=== PATIENT | male | born 1935 | race Caucasian/White ===

== ENCOUNTER 2019-10-09 09:09 | Inpatient (IN) | payer OTHER, MEDICARE, SELFPAY ==
[2019-10-09] VITALS (13 sets, daily range): BP systolic 129–176; BP diastolic 48–80; PULSE 64–96; RESP 14–20; TEMP 36.4–37; O2SAT 93–96; BMI 29.1
--- NOTE | ~2019-10-09 | US_ITS ---
EXAMINATION: US venous doppler UE LT DATE: 10/10/2019 12:24 INDICATION: Left upper limb edema. TECHNIQUE: Grayscale ultrasound images without and with compression and Doppler ultrasound images of the left upper extremity veins were obtained. COMPARISON: None. FINDINGS: The visualized portions of the left internal jugular vein, subclavian vein, axillary vein, brachial v eins, basilic vein, radial vein, and ulnar vein are patent. There is thrombus in left cephalic vein. IMPRESSION: 1. No deep venous thrombosis. 2. Superficial vein thrombosis involving left cephalic vein. Reviewed, dictated and finalized at location A.
--- NOTE | ~2019-10-09 | US_ITS ---
EXAMINATION: US venous doppler [facility] DATE: 10/10/2019 12:24 INDICATION: Lower limb edema. TECHNIQUE: Grayscale ultrasound images without and with compression and Doppler ultrasound images of the bilateral lower extremity veins were obtained. COMPARISON: None. FINDINGS: The visualized portions of right common femoral vein, profunda (deep) femoral vein, femoral vein, pop liteal vein, peroneal veins, posterior tibial veins, and greater saphenous vein outflow are patent. The visualized portions of left common femoral vein, profunda femoral vein, femoral vein, popliteal v ein, peroneal veins, posterior tibial veins, and greater saphenous vein outflow are patent. IMPRESSION: 1. No deep venous thrombosis. Reviewed, dictated and finalized at location A.
--- NOTE | ~2019-10-09 | XR_ITS ---
XR chest 2V 10/09/2019 09:32 Indication: Shortness of breath, cough and weakness Procedure: AP and lateral views of the chest Comparison: Comparison to multiple prior studies sequentially, with oldest reviewed study dated 05/03. Findings: There is patchy bilateral airspace disease, compatible with pneumonia. Port catheter tip in the condyle aspect of the SVC. Heart size normal for technique. No definite pleural effusion or pneu mothorax. Impression: 1: Patchy bilateral airspace disease, compatible with pneumonia. Reviewed, dictated and finalized at location A. Impression: 1: Patchy bilateral airspace disease, compatible with pneumonia.
--- NOTE | 2019-10-09 09:10 | ECG_ITS ---
Measurements Intervals [place] Rate: 76 P: 40 FL: 178 QRS: -3 QRSD: 107 T: 117 QT: 425 QTc: 480 Interpretive Statements SINUS RHYTHM SUPRAVENTRICULAR TRIGEMINY VOLTAGE CRITERIA FOR LVH NONSPECIFIC ST & T-WAVE ABNORMALITY- LATERAL LEADS- BASELINE WANDER- I, II, V1-V6 ABNORMAL ECG Electronically Signed On 10-09-2019 10:13:24 CDT by Bayron Randall D.O.
--- NOTE | 2019-10-09 10:08 | ED.GENADULT ---
HPI - General Adult General Chief complaint: Shortness of Breath/Dyspnea <Mikael Tan PA-C - Last Filed: 10/09/19 18:51> Stated complaint: Cough, weakness <Mikael Tan PA-C - Last Filed: 10/09/19 18:51> Time Seen by Provider: 10/09/19 09:14 <Mikael Tan PA-C - Last Filed: 10/09/19 18:51> Source: patient and family <NICOLE Hollingsworth Last Filed: 10/09/19 18:51> Mode of arrival: ambulatory <NICOLE Hollingsworth Last Filed: 10/09/19 18:51> Limitations: no limitations <Mikael Tan PA-C - Last Filed: 10/09/19 18:51> History of Present Illness HPI narrative: Patient presets with chief complaint of coughing, feeling fatigued, productive cough something else for 1 week. Patient denies any fever, chills, nausea, vomiting, diarrhea. Patient has an extensive medical history including end-stage renal failure, recent GI bleed, edema of his upper and lower extremities, past colon and liver cancer, CHF. Patient has blood labs drawn once a week, his last drug was last Wednesday. Patient has been receiving occasional blood transfusions as well as iron transfusions. His last was 2 weeks ago as his hemoglobin has been holding stable since he had his ulcers cauterized a few weeks ago. and daughter states his hemoglobin last week was 8.1. They state patients erythropoetin and blood transfusions are managed by a [facility]an in conjunction with a gaming table operator and hematology/oncologist. They dont know the names of the latter.Patient still makes some urine. He has been offered dialysis but has declined. Patient is managed at the [facility] and his primary care is . Patient not have any home oxygen and states that he feels short of breath only after coughing or excessive exertion. <Mikael Tna PA-C - Last Filed: 10/09/19 18:51> Related Data Home medications: Home Medications Medication Instructions Recorded Confirmed amlodipine 10 mg PO DAILY 10/09/19 10/09/19 atorvastatin 80 mg PO DAILY 10/09/19 10/09/19 calcitriol 0.25 mcg PO DAILY 10/09/19 10/09/19 carvedilol 12.5 mg PO BID 10/09/19 10/09/19 cholecalciferol (vitamin D3) 2,000 unit PO DAILY 10/09/19 10/09/19 ferrous sulfate 325 mg PO DAILY 10/09/19 10/09/19 folic acid 1 mg PO DAILY 10/09/19 10/09/19 furosemide 40 mg PO DAILY 10/09/19 10/09/19 hydralazine 50 mg PO TID 10/09/19 10/09/19 insulin aspart U-100 5 unit SUBCUT BID 10/09/19 10/09/19 insulin glargine 30 unit SUBCUT HS 10/09/19 10/09/19 loperamide 4 mg PO BID PRN 10/09/19 10/09/19 magnesium oxide 400 mg PO BID 10/09/19 10/09/19 pantoprazole 40 mg PO BID 10/09/19 10/09/19 sodium bicarbonate 1,300 mg PO TID 10/09/19 10/09/19 <Mikael Tan PA-C - Last Filed: 10/09/19 18:51> Allergies/adverse reactions: Allergies Allergy/AdvReac Type Severity Reaction Status Date / Time lisinopril Allergy Mild cough Verified 10/09/19 10:16 <Mikael Tan PA-C - Last Filed: 10/09/19 18:51> Review of Systems Review of Systems: Narrative: CONSTITUTIONAL: Reports fatigue denies fever, chills, or sweats. EYES: Denies visual changes, redness, or discharge. ENT: Denies rhinorrhea, congestion, sore throat, or otalgia. CARDIOVASCULAR: Denies chest pain, palpitations, or edema. RESPIRATORY: Reports cough Denies present dyspnea. GASTROINTESTINAL: Denies abdominal pain, nausea, vomiting, or diarrhea. GENITOURINARY: Denies dysuria or hematuria. SKIN: Denies rash or itching. MUSCULOSKELETAL: Denies back pain, joint pain, or myalgia. NEUROLOGIC: Denies headache, numbness, dizziness, or weakness. PSYCHIATRIC: Denies anxiety or depression. <Mikael Tan PA-C - Last Filed: 10/09/19 18:51> PMFSH Family History Family History: Family History (Updated 10/09/19 @ 17:07 by Marlee Robison RN) Mother Diabetes mellitus Father Dementia <Mikael Tan PA-C - Last Filed: 10/09/19 18:51> Social History Social History: Social History Smoking packs per day:
[2019-10-09 10:29] LABS: Hematocrit 22.5 % (42.0-52.0); Mean Corpuscular HGB Conc 30.7 g/dl (32-36); Mean Corpuscular Hemoglobin 25.8 pg (26-34); Mean Corpuscular Volume 84.3 fl (80-100); Mean Platelet Volume 11.2 fl (7.4-10.4); Platelet Count Result 280 k/mm3 (150-375); Red Blood Count 2.67 M/mm3 (4.6-6.20); Red Cell Distribution Width 16.6 % (11.5-14.5)
[2019-10-09 10:31] LABS: Hemoglobin 6.9 g/dL (14.0-18.0)
[2019-10-09 10:38] LABS: Blood Urea Nitrogen 84 mg/dL (9-20); Carbon Dioxide 23 mmol/L (22-30); Chloride 105 mmol/L (98-107); Estimated CRCL calculation 14 ml/min; Estimated Glomerular Filt Rate 14; Glucose 223 mg/dL (75-110); Potassium 3.7 mmol/L (3.4-5.0); Sodium 138 mmol/L (137-145)
[2019-10-09 10:59] LABS: Eosinophils Absolute Manual 0.39 K/mm3 (0.02-0.5); Eosinophils Percent Manual 3 % (0-4); Hypochromasia 2+ (NORMAL); Lymphocytes Absolute Manual 0.13 K/mm3 (1.1-4.5); Monocytes Absolute Manual 0.52 K/mm3 (0.1-0.90); Monocytes Percent Manual 4 % (3-9); Neutrophils Percent Manual 92 % (46-73); Platelet Estimate Adequate (Adequate); Total Cells Counted 100
[2019-10-09 11:00] LABS: Ovalocytes 1+ (NORMAL)
[2019-10-09] MEDS: BENZONATATE 100 MG CAPSULE 200 MG PO (12:34)
--- NOTE | 2019-10-09 12:37 | PC.NURSE ---
Called [facility] bed placement at 1218 they do not have any available beds in their facility at this time.
[2019-10-09 12:55] LABS: Lactic Acid Reflex 0.6 mmol/L (0.7-2.1)
--- NOTE | 2019-10-09 16:07 | ADMGEN ---
This patient, Lupillo Iniguez, was admitted to IMU Room 231-01 at 1533. Patient/family oriented to hospital policies and general routines including ID bracelet, bed and alarms, visiting hours, pain management, procedures, bathroom and other care routines, personal items, smoking policy, room service/diet, and visiting hours. Valuables list has been completed. Information on how to activate the Rapid Response Team has been discussed. Patient/Family are encouraged to report perceived risks to care and to ask questions if they do not understand what they are told or what they should do.
[2019-10-09] MEDS: SODIUM CHLORIDE 0.9% IV 250 ML 30 ML IV CONT (17:11)
--- NOTE | 2019-10-09 19:00 | PM.IMHP ---
H&P: HPI History of Present Illness Chief complaint: Cough, shortness of breath, fever. Narrative: Lupillo Iniguez is a very pleasant 83-year-old male with diastolic congestive heart failure, prior acute hypoxic respiratory failure resulting in cardiac arrest, chronic kidney disease stage 4, chronic anemia, remote history of colon cancer, hypertension, and insulin-dependent diabetes mellitus who presented to the emergency department complaints of cough, shortness of breath, and fever. 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 He was hospitalized sometime recently at the [facility], it sounds like in the last several weeks, and some areas that were bleeding were cauterized. He continues to have dark stools, and that is unchanged. Over the past week or so, he has had a cough that has not been productive. He has also felt progressively more short of breath on lesser and lesser exertion, has a decreased appetite, and has been feeling dizzy to the point where he had a fall yesterday in the bathroom. Reportedly he fell onto his buttock, and he had no head trauma or loss of consciousness. Once again he was found to have a low hemoglobin of 6.9 as well as findings of pneumonia on chest x-ray and he is being admitted in this setting. At the time my evaluation, he reports feeling maybe a little bit better but not significantly so. Cough is somewhat improved, however. He notes having a fever at home, but is uncertain as to high as temperature got. He has not had chills or sweats. No headache or neck ache. He has had some sinus and chest congestion. He denies vomiting and diarrhea. Review of Systems Review of Systems: Narrative: Twelve systems were reviewed with pertinent positives and negatives as per HPI. Except as documented, all other systems were reviewed and are negative. [facility] Past Medical History Medical History (Updated 10/09/19 @ 22:53 by Radha Daniel PA-C) Chronic anemia Chronic diastolic congestive heart failure Chronic kidney disease, stage 4 (severe) Baseline creatinine appears to be between 3.0 and 3.60. Colon cancer metastasized to liver In 2000. Glaucoma History of cardiac arrest Secondary to acute hypoxic respiratory failure in May 2018, with successful resuscitation. History of upper gastrointestinal bleeding Secondary to ulcers in March 2018. Hypertension Hypertriglyceridemia Insulin dependent type 2 diabetes mellitus Mild pulmonary hypertension RVSP of 47 millimeters of mercury in May 2018. Surgical History Surgical History (Updated 10/09/19 @ 22:46 by Radha Daniel PA-C) Status post cataract extraction Status post cholecystectomy Status post colon resection In 2000 for colon cancer. Family History Family History Mother Diabetes mellitus Father Dementia Social History Social History (Updated 10/09/19 @ 22:48 by Radha Daniel PA-C) Social History: He smoked about a pack of cigarettes per day for 45 years and quit many years ago. He served in the [employer] for 2 years and gets most of his care at the [facility]. After he was out of the [employer], he worked for the [employer]. He has 4 children who are quite healthy. He wishes to be a DNR/DNI. Smoking packs per day: 1 Smoking cigarettes per day: 20.0 Years smoked: 45 Smoking pack-years: 45.00 Smoking status: Former smoker Alcohol intake: never Substance use: never Gender identity (if verbalized by the patient): Male Spiritual care concerns: No Agree to blood products: Yes Meds Home Medications and Allergies Home Medications Medication Instructions Recorded Confirmed Type amlodipine 10 mg PO DAILY 10/09/19 10/09/19 History atorvastatin 80 mg PO DAILY 10/09/19 10/09/19 History calcitriol 0.25 mcg PO DAILY 10/09/19
--- NOTE | 2019-10-09 20:15 | PM.CNNEP ---
Assessment and Plan Assessment and plan (1) CKD (chronic kidney disease), stage V: Code(s): N18.5 - Chronic kidney disease, stage 5 Status: Chronic (2) Chronic GI bleeding: Code(s): K92.2 - Gastrointestinal hemorrhage, unspecified Status: Chronic (3) Acute on chronic anemia: Code(s): D64.9 - Anemia, unspecified Status: Acute (4) Community acquired pneumonia: Qualifiers: Laterality: unspecified laterality Qualified Code(s): J18.9 - Pneumonia, unspecified organism Code(s): J18.9 - Pneumonia, unspecified organism Status: Acute Assessment and Plan: . Additional Plan Lupillo has chronic kidney disease that has been slowly and progressively deteriorating as evidenced by the trend of his blood work. When he was here in March of 2019, his creatinine was around 3.6 mg/dL which translates into chronic kidney disease stage 4. Since that time, his creatinine has worsened and his GFR is now below 15 cc/minute which means he is currently classified as chronic kidney disease stage 5. Both he and his family are aware of the deteriorating kidney disease but the patient has repeatedly told them as well as his physicians involved in his care that he does not want to pursue renal replacement therapydialysis as a treatment option. In spite of his advanced kidney disease, he has no critical electrolyte abnormalities, severe metabolic acidosis, or overt uremia although one could argue some of his admission symptoms may be some soft uremic signs. In an effort to try and respect the patient's wishes, I will continue aggressive medical care to try to maintain stability in his renal function. He does still make urine which is probably the reason why his volume status appears to be relatively stable at this time. His major issue/problem is that of anemia which is multifactorial in etiology with regard to chronic bleeding, anemia of CKD, and probably some degree of iron deficiency. I did have a very long lengthy discussion with the patient's and daughter (> 20 minutes) at bedside regarding the natural course of kidney disease and the eventual likelihood that his kidney function will continue to deteriorate to the point of no function at all. They are well aware of this as is the patient and they are trying to respect his wishes with regard to the fact he does not want to pursue dialysis in general. I will continue follow the patient with you while him is hospitalized may further recommendations during his hospital course. Thank you for allowing me participate in the care of this patient. History of Present Illness Reason for Consult Consult date: 10/09/19 Reason for consult: chronic renal failure Chief Complaint Chief complaint: Cough, shortness of breath, fever. History of Present Illness Narrative: The patient is a 83-year-old male with past medical history as noted below who presented to [facility] emergency department with complaints of cough, shortness of breath, and fever. According to the patient and his family at bedside, he reports a cough that has not been productive for the last week. Coupled with this symptoms, he states he has also been getting progressively more short of breath in general and worse with exertional activity. Other associated symptoms include decreased appetite and dizzincess which led to a fall in the bathroom (no acute injury or trauma following the fall). It should be noted that [facility] and chronic kidney disease. Inspite of recent intervention (cauterization of bleeding ulcers??), he continues to have dark stools. Workup and evaluation in the emergency room demonstrated hemoglobin of 6.9 consistent with his known history of chronic anemia and a chest x-ray that demonstrated evidence of pneumonia. His chemistry demonstrated fairly advanced chronic kidney
[2019-10-09] MEDS: TUBING, BLOOD PLUM PUMP TUBING 1 EACH XX (21:18)
[2019-10-09 22:00] LABS: Hematocrit 24.4 % (42.0-52.0); Hemoglobin 7.7 g/dL (14.0-18.0); Mean Corpuscular HGB Conc 31.6 g/dl (32-36); Mean Corpuscular Hemoglobin 26.6 pg (26-34); Mean Corpuscular Volume 84.1 fl (80-100); Mean Platelet Volume 10.9 fl (7.4-10.4); Platelet Count Result 250 k/mm3 (150-375); Red Cell Distribution Width 16.1 % (11.5-14.5); White Blood Count 12.4 K/mm3 (4.5-10.0)
[2019-10-09] MEDS: PANTOPRAZOLE 40 MG TABLET PO (23:56)
[2019-10-09] MEDS: carvediloL 12.5 MG TABLET PO (23:56)
[2019-10-09] MEDS: hydrALAZINE HCL 50 MG TABLET PO (23:56)
[2019-10-09] MEDS: INSULIN GLARGINE (*BKC) 100 UNITS/ML 30 UNITS SUB-Q (23:57)
[2019-10-10] VITALS (20 sets, daily range): BP systolic 136–158; BP diastolic 48–55; PULSE 61–83; RESP 12–22; TEMP 36.4–36.7; O2SAT 93–98; BMI 29.2
[2019-10-10] LABS: Glucose Point of Care 248 (65-105)
[2019-10-10] MEDS: ALBUTEROL SULFATE NEB 2.5 MG/0.5 ML INH 5 MG INHALATION ×4 (02:25→22:10)
[2019-10-10] MEDS: IPRATROPIUM BR 0.02% INH SOLN 0.5 MG/2.5 ML VIAL INHALATION ×4 (02:25→22:10)
[2019-10-10 05:24] LABS: Basophils Percent Auto 0.3 % (0.2-1.2); Eosinophils Absolute Auto 0.1 K/mm3 (0-0.3); Eosinophils Percent Auto 0.7 % (0-4.4); Hematocrit 25.1 % (42.0-52.0); Hemoglobin 7.8 g/dL (14.0-18.0); Immature Granulocyte Absolute 0.29 K/mm3 (0.00-0.031); Immature Granulocyte Percent A 2.3 % (0-0.5); Lymphocytes Absolute Auto 0.46 K/mm3 (0.9-3.2); Lymphocytes Percent Auto 3.7 % (18.3-44.2); Mean Corpuscular HGB Conc 31.1 g/dl (32-36); Mean Corpuscular Hemoglobin 26.2 pg (26-34); Mean Corpuscular Volume 84.2 fl (80-100); Monocytes Absolute Auto 0.8 K/mm3 (0.1-0.6); Monocytes Percent Auto 6.5 % (2.6-8.5); Neutrophils Absolute Auto 10.8 K/mm3 (1.3-6.7); Neutrophils Percent Auto 86.5 % (45.5-73.1); Platelet Count Result 244 k/mm3 (150-375); Red Blood Count 2.98 M/mm3 (4.6-6.20); Red Cell Distribution Width 16.1 % (11.5-14.5); White Blood Count 12.5 K/mm3 (4.5-10.0)
[2019-10-10 05:45] LABS: Alanine Aminotransferase 31 U/L (4-50); Albumin Level 2.8 g/dL (3.5-5.1); Alkaline Phosphatase 123 U/L (38-126); Aspartate Amino Transferase 24 U/L (17-59); Bilirubin,Total 0.4 mg/dL (0.2-1.3); Blood Urea Nitrogen 80 mg/dL (9-20); Calcium 8.2 mg/dL (8.4-10.2); Carbon Dioxide 24 mmol/L (22-30); Chloride 106 mmol/L (98-107); Estimated CRCL calculation 14 ml/min; Estimated Glomerular Filt Rate 14; Glucose 242 mg/dL (75-110); Magnesium 1.7 mg/dL (1.6-2.3); Phosphorus 4.2 mg/dL (2.5-4.5); Potassium 3.6 mmol/L (3.4-5.0); Sodium 137 mmol/L (137-145)
[2019-10-10 06:47] LABS: Thyroid Stimulating Hormone Reflex 0.684 uIU/mL (0.465-4.68)
[2019-10-10 08:03] LABS: Glucose Point of Care 216 (65-105)
[2019-10-10] MEDS: SODIUM BICARBONATE TAB 650 MG TABLET 1300 MG PO ×3 (08:05→17:17)
[2019-10-10] MEDS: INSULIN ASPART (*BKC) 100 UNITS/ML SUB-Q ×3 (08:06→17:14)
[2019-10-10] MEDS: ATORVASTATIN 40 MG TABLET 80 MG PO (08:09)
[2019-10-10] MEDS: CHOLECALCIFEROL 1,000 UNIT TABLET 2000 UNITS PO (08:10)
[2019-10-10] MEDS: calcitrioL 0.25 MCG CAPSULE PO (08:10)
[2019-10-10] MEDS: carvediloL 12.5 MG TABLET PO ×2 (08:10→17:17)
[2019-10-10] MEDS: FUROSEMIDE 40 MG TABLET PO (08:11)
[2019-10-10] MEDS: FOLIC ACID 1 MG TABLET PO (08:11)
[2019-10-10] MEDS: hydrALAZINE HCL 50 MG TABLET PO ×3 (08:11→17:19)
[2019-10-10] MEDS: AMLODIPINE BESYLATE 5 MG TABLET 10 MG PO (08:12)
[2019-10-10] MEDS: MAGNESIUM OXIDE 400 MG TABLET PO ×2 (08:14→17:19)
[2019-10-10] MEDS: PANTOPRAZOLE 40 MG TABLET PO ×2 (08:46→17:17)
--- NOTE | 2019-10-10 10:53 | PM.PNNEP ---
Progress Note: A&P Assessment and Plan (1) CKD (chronic kidney disease), stage V: Code(s): N18.5 - Chronic kidney disease, stage 5 Status: Chronic Assessment and Plan: due to progression of disease from HTN, DM, vascular disease, and age does not want to pursue dialysis as a treatment option inspite of advanced disease, no critical electrolytes and volume status reasonable (but with edema in LEs + UEs) (2) Chronic GI bleeding: Code(s): K92.2 - Gastrointestinal hemorrhage, unspecified Status: Chronic Assessment and Plan: apparently an ongoing issue with recent intervention on last hospitalization at [facility] requires chronic PRBC transfusions as well as Epogen therapy GI consulted for further evalutaion follow H/H (3) Acute on chronic anemia: Code(s): D64.9 - Anemia, unspecified Status: Chronic Assessment and Plan: multifactorial - CKD, blood loss, chronic disease, iron deficiency(?) PRBC transfusion PRN empiric Epogen therapy follow H/H (4) Community acquired pneumonia: Qualifiers: Laterality: unspecified laterality Qualified Code(s): J18.9 - Pneumonia, unspecified organism Code(s): J18.9 - Pneumonia, unspecified organism Status: Acute Assessment and Plan: as noted by admission CXR on antibiotic therapy follow cultures Will continue to follow Subjective Date/time seen: 10/10/19 10:53 H/H better s/p PRBC transfusion; Gastroenterology consulted and suspect patient will need EGD given his history; no other acute issues or problems to report at this time. Exam Narrative: Exam Narrative: General: WD/WN malein NAD Heart: normal S1 and S2; no rub Lungs: clear to auscultation Abdomen: soft, nontender, nondistended, positive bowel sounds Extremities: no cyanosis or clubbing; 1 - 2+ edema Skin: warm and dry Objective Data Vital Signs Vital Signs: Vital Signs Temp Pulse Resp BP Pulse Ox 10/10/19 09:08 65 16 10/10/19 08:57 66 16 10/10/19 08:10 79 10/10/19 07:47 36.4 C L 78 16 156/55 H 93 10/10/19 06:00 73 10/10/19 04:00 73 10/10/19 03:40 36.7 C 74 12 149/49 H 97 10/10/19 02:35 72 16 10/10/19 02:27 95 10/10/19 02:25 78 16 10/10/19 02:00 61 10/10/19 00:00 36.6 C 83 18 149/48 H 97 10/09/19 23:56 83 10/09/19 22:00 76 10/09/19 20:35 36.4 C L 96 18 152/57 H 95 10/09/19 20:00 37.0 C 79 20 157/80 H 95 10/09/19 19:35 36.9 C 77 18 168/78 H 96 10/09/19 18:13 36.7 C 73 14 176/55 H 94 10/09/19 17:13 36.6 C 72 14 151/69 H 93 10/09/19 16:58 36.5 C 77 16 152/61 H 93 10/09/19 15:23 36.6 C 80 16 142/48 H 93 10/09/19 15:19 75 19 129/54 L 93 10/09/19 13:45 70 18 133/54 L 94 10/09/19 11:15 64 18 135/54 L 96 Intake/Output Intake/Output: Intake & Output 10/07/19 10/08/19 10/09/19 10/10/19 22:59 23:59 23:59 23:59 Intake Total 300 100 Output Total 500 900 Balance -200 -800 Meds/Results Medications: Active Medications Generic Name Dose Route Start Last Admin Trade Name Freq PRN Reason Stop Dose Admin Albuterol 5 mg 10/10/19 02:00 10/10/19 08:57 Albuterol Sulf Neb 2.5mg/0.5ml INHALATION 5 mg Q6HRT MARCO ANTONIO Administration Amlodipine Besylate 10 mg 10/10/19 09:00 10/10/19 08:12 Norvasc PO 10 mg DAILY MARCO ANTONIO Administration Atorvastatin Calcium 80 mg 10/10/19 09:00 10/10/19 08:09 Lipitor PO 80 mg DAILY MARCO ANTONIO Administration Benzonatate 200 mg 10/10/19 13:00 Tessalon Perles PO TID MARCO ANTONIO Calcitriol 0.25 mcg 10/10/19 09:00 10/10/19 08:10 Rocaltrol PO 0.25 mcg DAILY MARCO ANTONIO Administration Carvedilol 12.5 mg 10/09/19 23:00 03/10/20 08:10 Coreg PO 12.5 mg BID MARCO ANTONIO Administration Dextrose 12.5 gm 10/09/19 20:07 Dextrose 50% Syringe IV PUSH PRN PRN Hypoglycemia Protocol Ferrous Sulfate 32
--- NOTE | 2019-10-10 11:26 | WPDGICN ---
Assessment and Plan Assessment and plan (1) Acute on chronic anemia: Code(s): D64.9 - Anemia, unspecified Status: Chronic Assessment and Plan: Patient appears to have anemia on the basis chronic kidney disease. He appears to have a component GI blood loss as well. Melenic stools current late period this suggest upper GI blood loss. Patient has had several recent endoscopies with gastric lesions presumed to represent angiodysplasias antrum stomach. Plan is to repeat EGD prior to discharge. (2) CKD (chronic kidney disease), stage V: Code(s): N18.5 - Chronic kidney disease, stage 5 Status: Chronic (3) Insulin dependent type 2 diabetes mellitus: Code(s): E11.9 - Type 2 diabetes mellitus without complications; Z79.4 - detention (current) use of insulin Status: Acute (4) Chronic diastolic congestive heart failure: Code(s): I50.32 - Chronic diastolic (congestive) heart failure Status: Acute Assessment and Plan: Congestive heart failure likely exacerbated by his significant anemia. High-output failure is suggested. This is improving after transfusion and diuresis. (5) Community acquired pneumonia: Qualifiers: Laterality: unspecified laterality Qualified Code(s): J18.9 - Pneumonia, unspecified organism Code(s): J18.9 - Pneumonia, unspecified organism Status: Acute GI Consult Note Consult date/time: 10/10/19 11:26 HPI: Lupillo Iniguez is a 83 year old male seen at the request of the hospitalist service. Patient admitted to the hospital with increasing shortness of breath and weakness. He was found to have pneumonia in the emergency room. Patient also found to have rather profound anemia with hemoglobin of 6-1/2. Patient's past history is significant for a distant history of colon cancer and liver metastases treated with surgery and therapy in 2000. He was developed chronic kidney disease. His felt to have chronic anemia on this basis. For which he receives Epogen. Over the last year has had episodes GI bleeding. One year ago endoscopy revealed gastritis. This subsequently has been followed at the [facility] and may represent a vascular ectasias. He has required cautery on several occasions. Most recently endoscopy at the [facility] was 3 months ago. Patient denies abdominal pain is diet and intake has been adequate. Review of Systems Review of Systems: All systems reviewed & are unremarkable except as noted in HPI and below PMFSH Past Medical History Medical History Chronic anemia Chronic diastolic congestive heart failure Chronic kidney disease, stage 4 (severe) Baseline creatinine appears to be between 3.0 and 3.60. Colon cancer metastasized to liver In 2000. Glaucoma History of cardiac arrest Secondary to acute hypoxic respiratory failure in May 2018, with successful resuscitation. History of upper gastrointestinal bleeding Secondary to ulcers in March 2018. Hypertension Hypertriglyceridemia Insulin dependent type 2 diabetes mellitus Mild pulmonary hypertension RVSP of 47 millimeters of mercury in May 2018. Surgical History Surgical History Status post cataract extraction Status post cholecystectomy Status post colon resection In 2000 for colon cancer. Family History Family History Mother Diabetes mellitus Father Dementia Social History Social History (Updated 10/09/19 @ 22:48 by Radha Daniel PA-C) Social History: He smoked about a pack of cigarettes per day for 45 years and quit many years ago. He served in the [employer] for 2 years and gets most of his care at the [facility]. 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 He has 4 children who are quite healthy. He wishes to be a DNR/DNI. Smoking packs per day: 1 Smoking
[2019-10-10 12:11] LABS: Iron 27 ug/dL (49-181)
[2019-10-10 12:17] LABS: Immature Reticulocyte Fraction 25.5 % (3.0-15.9); Reticulocyte Hemoglobin Conten 24.7 pg (28.2-35.7); Reticulocyte Percent 1.86 % (0.7-4.3); Reticulocytes Absolute 0.06 B/L (32.2-175.7)
[2019-10-10 12:20] LABS: Percent Iron Saturation 17 % (20-50)
[2019-10-10] MEDS: BENZONATATE 100 MG CAPSULE 200 MG PO ×2 (13:10→17:20)
[2019-10-10] MEDS: GUAIFENESIN/DEXTROMETHORPHAN 10 ML UDC PO ×3 (13:30→20:39)
[2019-10-10 15:41] LABS: Glucose Point of Care 222 (65-105)
[2019-10-10 16:56] LABS: IFOB Positive Control Positive; Immunochemical Fecal Occult Bl Positive (N)
[2019-10-10 17:10] LABS: Glucose Point of Care 246 (65-105)
--- NOTE | 2019-10-10 17:55 | PM.IMPN ---
Progress Note: A&P Assessment and Plan (1) Community acquired pneumonia: Qualifiers: Laterality: unspecified laterality Qualified Code(s): J18.9 - Pneumonia, unspecified organism Code(s): J18.9 - Pneumonia, unspecified organism Status: Acute Assessment and Plan: He has been started on azithromycin and ceftriaxone.D # 2 Add Mucinex and Cornet to help mobilize secretions. Sputum to be attempted for culture. urinary antigens pending (2) Acute on chronic anemia: Code(s): D64.9 - Anemia, unspecified Status: Chronic Assessment and Plan: He was transfused and hemoglobin 7.8 today 10/09 Iron studies compatible with anemia chronic disease but stool guaiac positive GI has seen and plans on endoscopy before discharge (3) Chronic diastolic congestive heart failure: Code(s): I50.32 - Chronic diastolic (congestive) heart failure Status: Acute Assessment and Plan: He is edematous in his lower limbs and left upper extremity. Will likely need a dose of Lasix between units of blood. Continue p.o. Lasix in a.m. Monitor volume status closely. (4) Acute worsening of stage 4 chronic kidney disease: Code(s): N18.4 - Chronic kidney disease, stage 4 (severe) Status: Acute Assessment and Plan: Probably due to hypoperfusion from anemia. He may be intravascular depleted due to 3rd spacing, however. Creatinine 4.1,10/09, patient is adamant that he does not want to consider hemodialysis (5) Insulin dependent type 2 diabetes mellitus: Code(s): E11.9 - Type 2 diabetes mellitus without complications; Z79.4 - shelter (current) use of insulin Status: Acute Assessment and Plan: Continue basal insulin. Initiate sliding scale insulin, Accu-Cheks, and hypoglycemic protocol. 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 Will request records for review. Dr. Gannon has seen and as above plans on endoscopy later Most likely will just have to continue transfusing p.r.n. Subjective Date/time seen: 10/10/19 17:55 Interval history: Date of visit 10/09 83-year-old white male with chronic renal failure stage 4 type 2 diabetes admitted with pneumonia and worsening anemia. Treated at the [facility] for his anemia is found to have gastritis GI bleeding. Also has anemia of chronic disease from his renal failure. Has refused hemodialysis. Exam Narrative: Exam Narrative: Blood pressure 154/50 pulse is 62 afebrile General: A well-developed, well-nourished mildly ill-appearing elderly male sitting up in bed in no acute distress. He is quite hard of hearing. HEENT: Sclera anicteric. PERRL, . Neck: Supple. Large for the redundant skin hanging beneath the chin. Respiratory: Crackles at the left base with scattered rhonchi. Cardiovascular: Regular rate and rhythm with S1-S2. Gastrointestinal: Abdomen is soft, nontender, and nondistended with positive bowel sounds. Skin: Warm and dry. Discoloration to the hands and forearms bilaterally, which he states is chronic and from iron. Extremities: No cyanosis or clubbing. He has 1+ pitting edema of the left upper extremity and bilateral lower extremities. Negative Aminta sign bilaterally. Neurological: . No gross focal deficits to casual conversation. Psychiatric: Pleasant and cooperative with normal mood and affect. Objective Data Vital Signs Vital Signs: Vital Signs - 24 hr 10/09/19 18:13 10/09/19 19:35 10/09/19 20:00 Temperature 36.7 C 36.9 C 37.0 C Pulse Rate 73 77 79 Respiratory Rate 14 18 20 Blood Pressure 176/55 H 168/78 H 157/80 H Pulse Oximetry 94 96 95 10/09/19 20:35 10/09/19 22:00 10/09/19 23:56 Temperature 36.4 C L Pulse Rate 96 76 83 Respiratory Rate 18 Blo
--- NOTE | 2019-10-10 20:08 | PC.NURSE ---
This patient, Lupillo Iniguez, was transferred to [facility] on 10/10/19 at 1950. Personal belongings sent with patient. Report given to IRIS Ford. Appropriate documentation sent with patient.
--- NOTE | 2019-10-10 20:37 | PC.NURSE ---
Lupillo Iniguez received from [facility] to rm [id number].
[2019-10-10] MEDS: INSULIN GLARGINE (*BKC) 100 UNITS/ML 30 UNITS SUB-Q (20:54)
[2019-10-10 22:54] LABS: Glucose Point of Care 362 (65-105)
[2019-10-11] VITALS (15 sets, daily range): BP systolic 123–156; BP diastolic 49–64; PULSE 63–86; RESP 16–20; TEMP 36.1–37.1; O2SAT 91–97
[2019-10-11] MEDS: ALBUTEROL SULFATE NEB 2.5 MG/0.5 ML INH 5 MG INHALATION ×3 (03:15→20:44)
[2019-10-11] MEDS: IPRATROPIUM BR 0.02% INH SOLN 0.5 MG/2.5 ML VIAL INHALATION ×3 (03:15→20:44)
[2019-10-11 05:57] LABS: Basophils Absolute Auto 0.1 K/mm3 (0.0-0.1); Basophils Percent Auto 0.5 % (0.2-1.2); Eosinophils Absolute Auto 0.2 K/mm3 (0-0.3); Eosinophils Percent Auto 1.8 % (0-4.4); Hematocrit 24.4 % (42.0-52.0); Hemoglobin 7.5 g/dL (14.0-18.0); Immature Granulocyte Absolute 0.42 K/mm3 (0.00-0.031); Immature Granulocyte Percent A 3.8 % (0-0.5); Lymphocytes Absolute Auto 0.57 K/mm3 (0.9-3.2); Lymphocytes Percent Auto 5.2 % (18.3-44.2); Mean Corpuscular HGB Conc 30.7 g/dl (32-36); Mean Corpuscular Volume 84.7 fl (80-100); Monocytes Absolute Auto 0.7 K/mm3 (0.1-0.6); Monocytes Percent Auto 6.4 % (2.6-8.5); Neutrophils Percent Auto 82.3 % (45.5-73.1); Platelet Count Result 259 k/mm3 (150-375); Red Blood Count 2.88 M/mm3 (4.6-6.20); Red Cell Distribution Width 16.3 % (11.5-14.5)
[2019-10-11 06:00] LABS: Parathyroid Intact 216.9 pg/mL (7.5-53.5)
[2019-10-11 06:05] LABS: Potassium 3.3 mmol/L (3.4-5.0)
[2019-10-11 06:26] LABS: Blood Urea Nitrogen 79 mg/dL (9-20); Calcium 8.1 mg/dL (8.4-10.2); Carbon Dioxide 25 mmol/L (22-30); Chloride 105 mmol/L (98-107); Estimated CRCL calculation 15 ml/min; Estimated Glomerular Filt Rate 15; Glucose 221 mg/dL (75-110)
[2019-10-11 06:56] LABS: Vitamin D 25 Hydroxy 24.5 ng/mL
[2019-10-11 06:59] LABS: Sodium 137 mmol/L (137-145)
[2019-10-11 08:21] LABS: Glucose Point of Care 164 (65-105)
--- NOTE | 2019-10-11 09:40 | PC.NURSE ---
Pt to GI lab per stretcher, IV intact.
--- NOTE | 2019-10-11 10:02 | WPDANESEPPF ---
Anes - Initial Pre Proc Eval Procedure: Operation Date: 10/11/19 10:30 Proposed Procedures p Esophagogastroduodenoscopy - Constantino Gannon MD Date/Time: 10/11/19 10:02 Surgeon: Delonte Weir MD Pre Op Diagnosis: Cough, shortness of breath, fever. Patient Data Age: 83 Gender: M Height: 6 ft Weight: 100.2 kg Last Vital Signs Temp 97.0 F L 10/11/19 06:00 Pulse 86 10/11/19 06:00 Resp 16 10/11/19 06:00 BP 128/64 10/11/19 06:00 Pulse Ox 94 10/11/19 06:00 Allergies Allergy/AdvReac Type Severity Reaction Status Date / Time lisinopril Allergy Mild cough Verified 10/09/19 10:16 Home Medications Medication Instructions Recorded Confirmed Type amlodipine 10 mg PO DAILY 10/09/19 10/09/19 History atorvastatin 80 mg PO DAILY 10/09/19 10/09/19 History calcitriol 0.25 mcg PO DAILY 10/09/19 10/09/19 History carvedilol 12.5 mg PO BID 10/09/19 10/09/19 History cholecalciferol (vitamin D3) 2,000 unit PO DAILY 10/09/19 10/09/19 History ferrous sulfate 325 mg PO DAILY 10/09/19 10/09/19 History folic acid 1 mg PO DAILY 10/09/19 10/09/19 History furosemide 40 mg PO DAILY 10/09/19 10/09/19 History hydralazine 50 mg PO TID 10/09/19 10/09/19 History insulin aspart U-100 5 unit SUBCUT BID 10/09/19 10/09/19 History insulin glargine 30 unit SUBCUT HS 10/09/19 10/09/19 History loperamide 4 mg PO BID PRN 10/09/19 10/09/19 History magnesium oxide 400 mg PO BID 10/09/19 10/09/19 History pantoprazole 40 mg PO BID 10/09/19 10/09/19 History sodium bicarbonate 1,300 mg PO TID 10/09/19 10/09/19 History Laboratory Tests 10/10/19 10/10/19 10/10/19 05:16 05:16 13:20 WBC RBC Hgb Hct MCV MCH MCHC RDW Plt Count MPV Immature Gran % (Auto) Neut % (Auto) Lymph % (Auto) [place] % (Auto) Eos % (Auto) Baso % (Auto) Lymph # (Auto) [place] # (Auto) Eos # (Auto) Baso # (Auto) Abs Immat Gran (auto) Absolute Neuts (auto) Absolute Nucleated RBC Nucleated RBC % Absolute Retic 0.06 B/L L B/L (32.2-175.7) Percent Retic 1.86 % % (0.7-4.3) Immature Retic Fraction 25.5 % H % (3.0-15.9) Retic Hgb Content 24.7 pg L pg (28.2-35.7) Sodium Potassium Chloride Carbon Dioxide BUN Creatinine Estim Creat Clear Calc Estimated GFR Glucose POC Capillary Glucose 222 mg/dl H mg/dl (65-105) Calcium Iron 27 ug/dL L ug/dL (49-181) TIBC 158 ug/dL L ug/dL (265-497) % Saturation 17 % L % (20-50) Ferritin 487.00 ng/mL H ng/mL (11.1-264) Vitamin D 25-Hydroxy PTH Intact Stl Occult Blood (IFOB) 10/10/19 10/10/19 10/10/19 16:28 16:56 20:49 WBC RBC Hgb Hct MCV MCH MCHC RDW Plt Count MPV Immature Gran % (Auto) Neut % (Auto) Lymph % (Auto) [place] % (Auto) Eos % (Auto) Baso % (Auto) Lymph # (Auto) [place] # (Auto) Eos # (Auto) Baso # (Auto) Abs Immat Gran (auto) Absolute Neuts (auto) Absolute Nucleated RBC Nucleated RBC % Absolute Retic Percent Retic Immature Retic Fraction Retic Hgb Content Sodium Potassium Chloride Carbon Dioxide BUN Creatinine Estim Creat Clear Calc Estimated GFR
[2019-10-11] MEDS: LACTATED RINGERS 1,000 ML 150 ML IV CONT (10:03)
[2019-10-11 10:07] LABS: Glucose Point of Care 153 (65-105)
--- NOTE | 2019-10-11 10:20 | PCOTNOTE ---
Pt down for EGD. Will attempt OT treatment at later time.
--- NOTE | 2019-10-11 11:04 | PCPTNOTE ---
Pt in EDG per OT. Will try again this afternoon for PT eval.
--- NOTE | 2019-10-11 11:35 | PC.NURSE ---
Pt returned from GI lab per ashanti.
[2019-10-11] MEDS: carvediloL 12.5 MG TABLET PO ×2 (12:02→17:39)
[2019-10-11] MEDS: hydrALAZINE HCL 50 MG TABLET PO ×2 (12:02→17:39)
[2019-10-11] MEDS: CHOLECALCIFEROL 1,000 UNIT TABLET 2000 UNITS PO (12:02)
[2019-10-11] MEDS: ATORVASTATIN 40 MG TABLET 80 MG PO (12:02)
[2019-10-11] MEDS: SODIUM BICARBONATE TAB 650 MG TABLET 1300 MG PO ×2 (12:03→17:40)
[2019-10-11] MEDS: FERROUS SULFATE 324 MG TABLET PO (12:03)
[2019-10-11] MEDS: MAGNESIUM OXIDE 400 MG TABLET PO ×2 (12:03→17:39)
[2019-10-11] MEDS: PANTOPRAZOLE 40 MG TABLET PO ×2 (12:03→17:40)
[2019-10-11] MEDS: calcitrioL 0.25 MCG CAPSULE PO (12:03)
[2019-10-11] MEDS: FUROSEMIDE 40 MG TABLET PO (12:03)
[2019-10-11] MEDS: AMLODIPINE BESYLATE 5 MG TABLET 10 MG PO (12:03)
[2019-10-11] MEDS: FOLIC ACID 1 MG TABLET PO (12:04)
[2019-10-11] MEDS: BENZONATATE 100 MG CAPSULE 200 MG PO ×2 (12:07→17:40)
[2019-10-11] MEDS: POTASSIUM CHLORIDE 20 MEQ TABLET PO (12:23)
[2019-10-11] MEDS: INSULIN ASPART (*BKC) 100 UNITS/ML SUB-Q ×2 (13:41→17:37)
--- NOTE | 2019-10-11 14:36 | PM.IMPN ---
Progress Note: A&P Assessment and Plan (1) Community acquired pneumonia: Qualifiers: Laterality: unspecified laterality Qualified Code(s): J18.9 - Pneumonia, unspecified organism Code(s): J18.9 - Pneumonia, unspecified organism Status: Acute Assessment and Plan: He has been started on azithromycin and ceftriaxone.D # 3 Add Mucinex and Cornet to help mobilize secretions. Sputum to be attempted for culture. 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 Lasix between units of blood. Continue p.o. Lasix in a.m. Monitor volume status closely. (4) Acute worsening of stage 4 chronic kidney disease: Code(s): N18.4 - Chronic kidney disease, stage 4 (severe) Status: Acute Assessment and Plan: Probably due to hypoperfusion from anemia. He may be intravascular depleted due to 3rd spacing, however. Creatinine 4.1,10/09, patient is adamant that he does not want to consider hemodialysis creatinine 3.8 today 10/10 (5) Insulin dependent type 2 diabetes mellitus: Code(s): E11.9 - Type 2 diabetes mellitus without complications; Z79.4 - rodent exterminator (current) use of insulin Status: Acute Assessment and Plan: Continue basal insulin. Initiate sliding scale insulin, Accu-Cheks, and hypoglycemic protocol. (6) Chronic GI bleeding: Code(s): K92.2 - Gastrointestinal hemorrhage, unspecified Status: Chronic Assessment and Plan: . 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 Continue PPI and serial monitoring Subjective Date/time seen: 10/11/19 14:36 Interval history: Date of visit 10/10 83-year-old white male with chronic renal failure stage 4 ,type 2 diabetes admitted with pneumonia and worsening anemia. Treated at the [facility] for his anemia is found to have gastritis GI bleeding. Also has anemia of chronic disease from his renal failure. Has refused hemodialysis. Coughing less and feeling somewhat better Exam Narrative: Exam Narrative: Blood pressure 138/64 pulse is 68 afebrile General: A well-developed, well-nourished mildly ill-appearing elderly male sitting up in bed in no acute distress. He is quite hard of hearing. HEENT: Sclera anicteric. PERRL, . Neck: Supple. Large for the redundant skin hanging beneath the chin. Respiratory: Crackles at the left base with scattered rhonchi. Cardiovascular: Regular rate and rhythm with S1-S2. Gastrointestinal: Abdomen is soft, nontender, and nondistended with positive bowel sounds. Skin: Warm and dry. Discoloration to the hands and forearms bilaterally, which he states is chronic and from iron. Extremities: No cyanosis or clubbing. He has 1+ pitting edema of the left upper extremity and bilateral lower extremities.but decreased Neurological: . No gross focal deficits to casual conversation. Psychiatric: Pleasant and cooperative with normal mood and affect. Objective Data Vital Signs Vital Signs: Vital Signs - 24 hr 10/10/19 15:40 10/10/19 17:17 10/10/19 18:32 Temperature 36.4 C L Pulse Rate 63 69 Respiratory Rate 22 H Blood Pressure 158/48 H Pulse Oximetry 95 95 10/10/19 22:00 10/10/19 22:10 10/10/19 22:21 Temperature 36.5 C Pulse Rate 66 66 67 Respiratory Rate 20 18 18 Blood Pressure 136/54 L Pulse Oximetry 98 10/11/19 03:15 10/11/19 03:
[2019-10-11 14:37] LABS: Glucose Point of Care 202 (65-105)
[2019-10-11 17:19] LABS: Glucose Point of Care 206 (65-105)
--- NOTE | 2019-10-11 17:45 | PM.PNNEP ---
Progress Note: A&P Assessment and Plan (1) CKD (chronic kidney disease), stage V: Code(s): N18.5 - Chronic kidney disease, stage 5 Status: Chronic Assessment and Plan: due to progression of disease from HTN, DM, vascular disease, and age does not want to pursue dialysis as a treatment option inspite of advanced disease, no critical electrolytes and volume status reasonable (but with edema in LEs + UEs) (2) Chronic GI bleeding: Code(s): K92.2 - Gastrointestinal hemorrhage, unspecified Status: Chronic Assessment and Plan: apparently an ongoing issue with recent intervention on last hospitalization at [facility] requires chronic PRBC transfusions as well as Epogen therapy GI consulted for further evalutaion follow H/H (3) Acute on chronic anemia: Code(s): D64.9 - Anemia, unspecified Status: Chronic Assessment and Plan: multifactorial - CKD, blood loss, chronic disease, iron deficiency(?) PRBC transfusion PRN empiric Epogen therapy follow H/H (4) Community acquired pneumonia: Qualifiers: Laterality: unspecified laterality Qualified Code(s): J18.9 - Pneumonia, unspecified organism Code(s): J18.9 - Pneumonia, unspecified organism Status: Acute Assessment and Plan: as noted by admission CXR on antibiotic therapy follow cultures Will continue to follow Subjective Date/time seen: 10/11/19 17:45 S/P EGD earlier today with findings noted; H/H relatively stable at this time; no other acute issues or problems voiced at this time -- states that he feels better in general. Exam Narrative: Exam Narrative: General: WD/WN male in NAD Heart: normal S1 and S2; no rub Lungs: clear to auscultation Abdomen: soft, nontender, nondistended, positive bowel sounds Extremities: no cyanosis or clubbing; 1 - 2+ edema Skin: warm and dry Objective Data Vital Signs Vital Signs: Vital Signs Temp Pulse Resp BP Pulse Ox 10/11/19 17:39 66 10/11/19 15:33 66 18 10/11/19 15:26 63 18 10/11/19 15:25 95 10/11/19 14:00 36.4 C 66 16 123/59 L 97 10/11/19 12:02 67 10/11/19 11:15 67 19 151/50 H 94 10/11/19 11:05 70 20 156/54 H 93 10/11/19 10:55 68 16 138/63 93 10/11/19 06:00 36.1 C L 86 16 128/64 94 10/11/19 03:20 68 18 10/11/19 03:15 65 18 10/10/19 22:21 67 18 10/10/19 22:10 66 18 10/10/19 22:00 36.5 C 66 20 136/54 L 98 10/10/19 18:32 95 Intake/Output Intake/Output: Intake & Output 10/08/19 10/09/19 10/10/19 10/11/19 23:59 23:59 23:59 23:59 Intake Total 300 1240 1740 Output Total 862 362 3161 Balance -200 340 565 Meds/Results Medications: Active Medications Generic Name Dose Route Start Last Admin Trade Name Freq PRN Reason Stop Dose Admin Albuterol 5 mg 10/10/19 02:00 10/11/19 15:23 Albuterol Sulf Neb 2.5mg/0.5ml INHALATION 5 mg Q6HRT MARCO ANTONIO Administration Amlodipine Besylate 10 mg 10/10/19 09:00 10/11/19 12:03 Norvasc PO 10 mg DAILY MARCO ANTONIO Administration Atorvastatin Calcium 80 mg 10/10/19 09:00 10/11/19 12:02 Lipitor PO 80 mg DAILY MARCO ANTONIO Administration Benzonatate 200 mg 10/10/19 13:00 10/11/19 17:40 Tessalon Perles PO 200 mg TID MARCO ANTONIO Administration Calcitriol 0.25 mcg 10/10/19 09:00 10/11/19 12:03 Rocaltrol PO 0.25 mcg DAILY MARCO ANTONIO Administration Carvedilol 12.5 mg 10/09/19 23:00 10/11/19 17:39 Coreg PO 12.5 mg BID MARCO ANTONIO Administration Dextrose 12.5 gm 10/09/19 20:07 Dextrose 50% Syringe IV PUSH PRN PRN Hypoglycemia Protocol Ferrous Sulfate 324 mg 10/10/19 09:00 10/11/19 12:03 Ferrous Sulfate PO 324 mg DAILY MARCO ANTONIO Administration Folic Acid 1 mg 10/10/19 09:00 10/11/19 12:04 Folic Acid PO 1 mg DAILY MARCO ANTONIO Administration Furosemide 40 mg 10/10/19 09:00 10/11/19 12:03 Lasix Tablet PO 40 mg DAILY MARCO ANTONIO
[2019-10-11] MEDS: GUAIFENESIN/DEXTROMETHORPHAN 10 ML UDC PO (20:28)
[2019-10-11] MEDS: INSULIN GLARGINE (*BKC) 100 UNITS/ML 30 UNITS SUB-Q (22:09)
[2019-10-12] VITALS (14 sets, daily range): BP systolic 147–153; BP diastolic 53–85; PULSE 63–82; RESP 16–18; TEMP 36.4–37.3; O2SAT 91–99
[2019-10-12] MEDS: ALBUTEROL SULFATE NEB 2.5 MG/0.5 ML INH 5 MG INHALATION ×4 (02:21→20:39)
[2019-10-12] MEDS: IPRATROPIUM BR 0.02% INH SOLN 0.5 MG/2.5 ML VIAL INHALATION ×4 (02:21→20:39)
[2019-10-12 05:29] LABS: Basophils Absolute Auto 0.1 K/mm3 (0.0-0.1); Basophils Percent Auto 0.4 % (0.2-1.2); Eosinophils Absolute Auto 0.3 K/mm3 (0-0.3); Eosinophils Percent Auto 2.2 % (0-4.4); Hematocrit 25.5 % (42.0-52.0); Immature Granulocyte Absolute 0.59 K/mm3 (0.00-0.031); Immature Granulocyte Percent A 5.2 % (0-0.5); Lymphocytes Absolute Auto 0.64 K/mm3 (0.9-3.2); Lymphocytes Percent Auto 5.7 % (18.3-44.2); Mean Corpuscular HGB Conc 31.4 g/dl (32-36); Mean Corpuscular Hemoglobin 26.5 pg (26-34); Mean Corpuscular Volume 84.4 fl (80-100); Mean Platelet Volume 10.4 fl (7.4-10.4); Monocytes Absolute Auto 0.7 K/mm3 (0.1-0.6); Monocytes Percent Auto 6.4 % (2.6-8.5); Neutrophils Percent Auto 80.1 % (45.5-73.1); Platelet Count Result 261 k/mm3 (150-375); Red Blood Count 3.02 M/mm3 (4.6-6.20); Red Cell Distribution Width 16.4 % (11.5-14.5); White Blood Count 11.3 K/mm3 (4.5-10.0)
[2019-10-12 05:33] LABS: Albumin Level 2.6 g/dL (3.5-5.1); Blood Urea Nitrogen 69 mg/dL (9-20); Calcium 7.8 mg/dL (8.4-10.2); Carbon Dioxide 26 mmol/L (22-30); Chloride 106 mmol/L (98-107); Estimated CRCL calculation 16 ml/min; Estimated Glomerular Filt Rate 16; Glucose 128 mg/dL (75-110); Phosphorus 3.9 mg/dL (2.5-4.5); Potassium 3.5 mmol/L (3.4-5.0); Sodium 139 mmol/L (137-145)
[2019-10-12 05:35] LABS: Glucose Point of Care 216 (65-105)
[2019-10-12 07:33] LABS: Glucose Point of Care 119 (65-105)
--- NOTE | 2019-10-12 07:57 | WPDGIPROGNO ---
Progress Note: A&P Additional Plan Patient alert appears more comfortable this morning. Less short of breath. No obvious signs of continued bleeding. He denies abdominal pain. Physical exam reveals patient to be alert. He is anicteric. Vital signs stable. Lungs reveal a few rhonchi. Heart without murmur. Abdomen is soft nontender with no organomegaly. Labs reveal hemoglobin 8.0 is stable. Impression 1. 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 This will cause ongoing slow GI blood loss. Patient will require chronic iron replacement. Most likely intermittent endoscopies. Current we anticipate this at 3-4 month intervals. Supplemental proton pump inhibitor may minimize some of the bleeding. Continue to monitor hemoglobin as an outpatient intermittently. Subjective Date/time seen: 10/12/19 07:57 Objective Data Vital Signs Vital Signs: Vital Signs - 24 hr 10/11/19 10:55 10/11/19 11:05 10/11/19 11:15 Temperature Pulse Rate 68 70 67 Respiratory Rate 16 20 19 Blood Pressure 138/63 156/54 H 151/50 H Pulse Oximetry 93 93 94 10/11/19 12:02 10/11/19 14:00 10/11/19 15:25 Temperature 36.4 C Pulse Rate 67 66 Respiratory Rate 16 Blood Pressure 123/59 L Pulse Oximetry 97 95 10/11/19 15:26 10/11/19 15:33 10/11/19 17:39 Temperature Pulse Rate 63 66 66 Respiratory Rate 18 18 Blood Pressure Pulse Oximetry 10/11/19 20:44 10/11/19 20:54 10/11/19 22:34 Temperature 37.1 C Pulse Rate 67 64 70 Respiratory Rate 18 18 16 Blood Pressure 144/49 H Pulse Oximetry 91 93 10/12/19 02:21 10/12/19 02:30 10/12/19 06:10 Temperature 37.3 C Pulse Rate 63 65 82 Respiratory Rate 18 18 16 Blood Pressure 151/85 H Pulse Oximetry 99 Intake/Output Intake/Output: Intake & Output 10/09/19 10/10/19 10/11/19 10/12/19 23:59 23:59 23:59 23:59 Intake Total 300 1240 1740 200 Output Total 319 163 6971 900 Balance -200 340 565 -700 Meds/Results Medications: Active Medications Generic Name Dose Route Start Last Admin Trade Name Freq PRN Reason Stop Dose Admin Albuterol 5 mg 10/10/19 02:00 10/12/19 02:21 Albuterol Sulf Neb 2.5mg/0.5ml INHALATION 5 mg Q6HRT MARCO ANTONIO Administration Amlodipine Besylate 10 mg 10/10/19 09:00 10/11/19 12:03 Norvasc PO 10 mg DAILY MARCO ANTONIO Administration Atorvastatin Calcium 80 mg 10/10/19 09:00 10/11/19 12:02 Lipitor PO 80 mg DAILY MARCO ANTONIO Administration Benzonatate 200 mg 10/10/19 13:00 10/11/19 17:40 Tessalon Perles PO 200 mg TID MARCO ANTONIO Administration Calcitriol 0.25 mcg 10/10/19 09:00 10/11/19 12:03 Rocaltrol PO 0.25 mcg DAILY MARCO ANTONIO Administration Carvedilol 12.5 mg 10/09/19 23:00 10/11/19 17:39 Coreg PO 12.5 mg BID MARCO ANTONIO Administration Dextrose 12.5 gm 10/09/19 20:07 Dextrose 50% Syringe IV PUSH PRN PRN Hypoglycemia Protocol Ferrous Sulfate 324 mg 10/10/19 09:00 10/11/19 12:03 Ferrous Sulfate PO 324 mg DAILY MARCO ANTONIO Administration Folic Acid 1 mg 10/10/19 09:00 10/11/19 12:04 Folic Acid PO 1 mg DAILY MARCO ANTONIO Administration Furosemide 40 mg 10/10/19 09:00 10/11/19 12:03 Lasix Tablet PO 40 mg DAILY MARCO ANTONIO Administration Glucagon 1 mg 10/09/19 20:07 Glucagon For Inj IM PRN PRN Hypoglycemia Protocol Glucose 15 gm 10/09/19 20:07 Glutose 15 PO PRN PRN Hypoglycemia Protocol Guaifenesin 600 mg 10/09/19 21:00 10/11/19 22:07 Mucinex 12 Hr Tab PO 600 mg Q12HR MARCO ANTONIO Administration Guaifenesin/Dextromethorphan 10 ml 10/10/19 10:32 10/11/19 20:28 Robitussin-Dm Syrup PO 10 ml Q4H PRN Administration Cough Heparin Sodium (Beef Lung) 50 units 10/11/19 09:00 10/11/19 12:03 Heparin Flush 50 Units/5 Ml IV PUSH 50 units QAM MARCO ANTONIO Administration Heparin Sodium (Beef Lung) 50 units 10/10/19 10:55 10/12/19 05:11 Heparin Flush 50 Units/5 Ml IV PUSH 50 un
[2019-10-12] MEDS: ATORVASTATIN 40 MG TABLET 80 MG PO (09:01)
[2019-10-12] MEDS: CHOLECALCIFEROL 1,000 UNIT TABLET 2000 UNITS PO (09:01)
[2019-10-12] MEDS: POTASSIUM CHLORIDE 20 MEQ TABLET PO (09:01)
[2019-10-12] MEDS: FOLIC ACID 1 MG TABLET PO (09:02)
[2019-10-12] MEDS: BENZONATATE 100 MG CAPSULE 200 MG PO ×3 (09:02→18:04)
[2019-10-12] MEDS: PANTOPRAZOLE 40 MG TABLET PO ×2 (09:02→18:04)
[2019-10-12] MEDS: FERROUS SULFATE 324 MG TABLET PO (09:02)
[2019-10-12] MEDS: AMLODIPINE BESYLATE 5 MG TABLET 10 MG PO (09:02)
[2019-10-12] MEDS: MAGNESIUM OXIDE 400 MG TABLET PO ×2 (09:02→18:04)
[2019-10-12] MEDS: FUROSEMIDE 40 MG TABLET PO (09:03)
[2019-10-12] MEDS: calcitrioL 0.25 MCG CAPSULE PO (09:03)
[2019-10-12] MEDS: hydrALAZINE HCL 50 MG TABLET PO ×3 (09:03→18:05)
[2019-10-12] MEDS: SODIUM BICARBONATE TAB 650 MG TABLET 1300 MG PO ×3 (09:03→18:04)
[2019-10-12] MEDS: carvediloL 12.5 MG TABLET PO ×2 (09:04→18:05)
--- NOTE | 2019-10-12 10:35 | WPDANESPN ---
Anes - Prog Note Post-Op Date/Time: 10/12/19 10:35 Cardiovascular status: normal Respiratory status: normal Airway patency: baseline Mental status: baseline Post-Op hydration status: normal Vital Signs: Last Vital Signs Temp 37.3 C 10/12/19 06:10 Pulse 80 10/12/19 09:42 Resp 18 10/12/19 09:42 BP 151/85 H 10/12/19 06:10 Pulse Ox 94 10/12/19 09:32 I/O: Intake & Output 10/11/19 10/12/19 10/12/19 23:59 07:59 15:59 Intake Total 710 200 240 Output Total 575 900 Balance 135 -700 240 Laboratory Tests 10/12/19 05:09 10/12/19 05:09 10/11/19 10/11/19 10/11/19 13:36 17:09 22:09 WBC RBC Hgb Hct MCV MCH MCHC RDW Plt Count MPV Immature Gran % (Auto) Neut % (Auto) Lymph % (Auto) [place] % (Auto) Eos % (Auto) Baso % (Auto) Lymph # (Auto) [place] # (Auto) Eos # (Auto) Baso # (Auto) Abs Immat Gran (auto) Absolute Neuts (auto) Absolute Nucleated RBC Nucleated RBC % Sodium Potassium Chloride Carbon Dioxide BUN Creatinine Estim Creat Clear Calc Estimated GFR Glucose POC Capillary Glucose 202 H 206 H 216 H Calcium Phosphorus Albumin 10/12/19 10/12/19 10/12/19 05:09 05:09 07:20 WBC 11.3 H RBC 3.02 L Hgb 8.0 L Hct 25.5 L MCV 84.4 MCH 26.5 MCHC 31.4 L RDW 16.4 H Plt Count 261 MPV 10.4 Immature Gran % (Auto) 5.2 H Neut % (Auto) 80.1 H Lymph % (Auto) 5.7 L [place] % (Auto) 6.4 Eos % (Auto) 2.2 Baso % (Auto) 0.4 Lymph # (Auto) 0.64 L [place] # (Auto) 0.7 H Eos # (Auto) 0.3 Baso # (Auto) 0.1 Abs Immat Gran (auto) 0.59 H Absolute Neuts (auto) 9.0 H Absolute Nucleated RBC 0.0 Nucleated RBC % 0.0 Sodium 139 Potassium 3.5 Chloride 106 Carbon Dioxide 26 BUN 69 H D Creatinine 3.60 H Estim Creat Clear Calc 16 Estimated GFR 16 L Glucose 128 H POC Capillary Glucose 119 H Calcium 7.8 L Phosphorus 3.9 Albumin 2.6 L Microbiology 10/10/19 16:28 Sputum Sputum Culture - Preliminary Post-procedural complaints: none Patient Feedback: Patient satisfied with anesthetic care.
--- NOTE | 2019-10-12 12:40 | P.PNNP_ITS ---
Progress Note: A&P Assessment and Plan (1) CKD (chronic kidney disease), stage V: Code(s): N18.5 - Chronic kidney disease, stage 5 Status: Chronic Assessment and Plan: * due to progression of disease from HTN, DM, vascular disease, and age * baseline creatinine has been fluctuating ~ 3.6 - 4.1mg/dl in the last year * does not want to pursue dialysis as a treatment option * inspite of advanced disease, no critical electrolytes and volume status reasonable (but with edema in LEs + UEs) (2) Chronic GI bleeding: Code(s): K92.2 - Gastrointestinal hemorrhage, unspecified Status: Chronic Assessment and Plan: * apparently an ongoing issue with recent intervention on last hospitalization at [facility] * requires chronic PRBC transfusions as well as Epogen therapy * Gastroenterology following - 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) -- this will unfortunately cause will cause slow ongoing GI blood loss * follow H/H (3) Acute on chronic anemia: Code(s): D64.9 - Anemia, unspecified Status: Chronic Assessment and Plan: * multifactorial - CKD, blood loss, chronic disease, GAVE, iron deficiency(?) * PRBC transfusion PRN * empiric Epogen therapy * follow H/H (4) Community acquired pneumonia: Qualifiers: Laterality: unspecified laterality Qualified Code(s): J18.9 - Pneumonia, unspecified organism Code(s): J18.9 - Pneumonia, unspecified organism Status: Acute Assessment and Plan: * as noted by admission CXR * on antibiotic therapy * follow cultures Will continue to follow Subjective Date/time seen: 10/12/19 12:40 S/P EGD yesterday with findings noted; breathing seems a bit better in general; H/H appears relatively stable; no other acute problems to report. Exam Narrative: Exam Narrative: General: WD/WN male in NAD Heart: normal S1 and S2; no rub Lungs: clear to auscultation Abdomen: soft, nontender, nondistended, positive bowel sounds Extremities: no cyanosis or clubbing; 1 - 2+ edema Skin: warm and intact Objective Data Vital Signs Vital Signs: Vital Signs Temp Pulse Resp BP Pulse Ox 10/12/19 09:42 80 18 10/12/19 09:32 81 18 94 10/12/19 09:04 74 10/12/19 06:10 37.3 C 82 16 151/85 H 99 10/12/19 02:30 65 18 10/12/19 02:21 63 18 10/11/19 22:34 37.1 C 70 16 144/49 H 93 10/11/19 20:54 64 18 10/11/19 20:44 67 18 91 10/11/19 17:39 66 10/11/19 15:33 66 18 10/11/19 15:26 63 18 10/11/19 15:25 95 10/11/19 14:00 36.4 C 66 16 123/59 L 97 Intake/Output Intake/Output: Intake & Output 10/09/19 10/10/19 10/11/19 10/12/19 23:59 23:59 23:59 23:59 Intake Total 300 1240 1790 440 Output Total 464 820 5999 900 Balance -200 340 615 -460 Meds/Results Medications: Active Medications Generic Name Dose Route Start Last Admin Trade Name Freq PRN Reason Stop Dose Admin Albuterol 5 mg 10/10/19 02:00 10/12/19 09:31 Albuterol Sulf Neb 2.5mg/0.5ml INHALATION 5 mg Q6HRT MARCO ANTONIO Administration Amlodipine Besylate 10 mg 10/10/19 09:00 10/12/19 09:02 Norvasc PO 10 mg DAILY MARCO ANTONIO Administrat
--- NOTE | 2019-10-12 12:40 | PM.PNNEP ---
Progress Note: A&P Assessment and Plan (1) CKD (chronic kidney disease), stage V: Code(s): N18.5 - Chronic kidney disease, stage 5 Status: Chronic Assessment and Plan: due to progression of disease from HTN, DM, vascular disease, and age baseline creatinine has been fluctuating ~ 3.6 - 4.1mg/dl in the last year does not want to pursue dialysis as a treatment option inspite of advanced disease, no critical electrolytes and volume status reasonable (but with edema in LEs + UEs) (2) Chronic GI bleeding: Code(s): K92.2 - Gastrointestinal hemorrhage, unspecified Status: Chronic Assessment and Plan: apparently an ongoing issue with recent intervention on last hospitalization at [facility] requires chronic PRBC transfusions as well as Epogen therapy Gastroenterology following - 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) -- this will unfortunately cause will cause slow ongoing GI blood loss follow H/H (3) Acute on chronic anemia: Code(s): D64.9 - Anemia, unspecified Status: Chronic Assessment and Plan: multifactorial - CKD, blood loss, chronic disease, GAVE, iron deficiency(?) PRBC transfusion PRN empiric Epogen therapy follow H/H (4) Community acquired pneumonia: Qualifiers: Laterality: unspecified laterality Qualified Code(s): J18.9 - Pneumonia, unspecified organism Code(s): J18.9 - Pneumonia, unspecified organism Status: Acute Assessment and Plan: as noted by admission CXR on antibiotic therapy follow cultures Will continue to follow Subjective Date/time seen: 10/12/19 12:40 S/P EGD yesterday with findings noted; breathing seems a bit better in general; H/H appears relatively stable; no other acute problems to report. Exam Narrative: Exam Narrative: General: WD/WN male in NAD Heart: normal S1 and S2; no rub Lungs: clear to auscultation Abdomen: soft, nontender, nondistended, positive bowel sounds Extremities: no cyanosis or clubbing; 1 - 2+ edema Skin: warm and intact Objective Data Vital Signs Vital Signs: Vital Signs Temp Pulse Resp BP Pulse Ox 10/12/19 09:42 80 18 10/12/19 09:32 81 18 94 10/12/19 09:04 74 10/12/19 06:10 37.3 C 82 16 151/85 H 99 10/12/19 02:30 65 18 10/12/19 02:21 63 18 10/11/19 22:34 37.1 C 70 16 144/49 H 93 10/11/19 20:54 64 18 10/11/19 20:44 67 18 91 10/11/19 17:39 66 10/11/19 15:33 66 18 10/11/19 15:26 63 18 10/11/19 15:25 95 10/11/19 14:00 36.4 C 66 16 123/59 L 97 Intake/Output Intake/Output: Intake & Output 10/09/19 10/10/19 10/11/19 10/12/19 23:59 23:59 23:59 23:59 Intake Total 300 1240 1790 440 Output Total 602 805 7850 900 Balance -200 340 615 -460 Meds/Results Medications: Active Medications Generic Name Dose Route Start Last Admin Trade Name Freq PRN Reason Stop Dose Admin Albuterol 5 mg 10/10/19 02:00 10/12/19 09:31 Albuterol Sulf Neb 2.5mg/0.5ml INHALATION 5 mg Q6HRT [facility] Administration Amlodipine Besylate 10 mg 10/10/19 09:00 10/12/19 09:02 Norvasc PO 10 mg DAILY [facility] Administration Atorvastatin Calcium 80 mg 10/10/19 09:00 10/12/19 09:01 Lipitor PO 80 mg DAILY [facility] Administration Benzonatate 200 mg 10/10/19 13:00 10/12/19 12:08 Tessalon Perles PO 200 mg TID [facility] Administration Calcitriol 0.25 mcg 10/10/19 09:00 10/12/19 09:03 Rocaltrol PO 0.25 mcg DAILY [facility] Administration Carvedilol 12.5 mg 10/09/19 23:00 10/12/19 09:04 Coreg PO 12.5 mg BID [facility] Administration Dextrose 12.5 gm 10/09/19 20:07 Dextrose 50% Syringe IV PUSH PRN PRN Hypoglycemia Protocol Ferrous Sulfate 324 mg 10/10/19 09:00 10/12/19 09:02 Ferrous Sulfate PO 324 mg DAILY [facility] Administration Folic Acid 1 mg 10/10/19 09:00 10/12/19 09:02 Folic Acid PO 1 mg DAILY [facility]
[2019-10-12 13:02] LABS: Glucose Point of Care 177 (65-105)
--- NOTE | 2019-10-12 13:44 | PCDIET ---
Nutrition Follow-Up Complete: Involuntary weight loss likely related to chronic kidney disease as evidenced by documented unintentional weight loss of 9 pounds x 7 months. Patient to consume 75% of meals or greater Goal met. Pt consuming 81.6% of meals. Nutrition recommendation: Recommend renal diet for protein restriction as pt has CKD stage 5 and has no plans for dialysis. Last recorded weight is 98.8 kg. Which has increased from initial wt of 97.7kg. Wt gain may partially be due to edema present. Bowel Motility: +BM 10/10 Labs Reviewed: Hgb(8.0), Hct(25.5), Alb(2.6), Na(139), K(3.5), GFR(16), BUN(69), Cr(3.60), Glu(128), Phos(3.9), Ca(7.8) Meds Noted:Lasix, Ferrous sulfate, folic acid, heparin, lantus, Mag-Ox, protonix, sodium bicarb, vit D Additional Notes: Pt asleep at visit but talked to pt's . She stated pt's appetite is much better than at admission. States pt doesn't eat much at home. He generally only eats breakfast which consists of 2 eggs, 2 pieces fox, 2 pieces of toast and 16oz of milk. He will sometimes eat an apple around lunch and then usually NPO remainder of the day. concerned he was eating too many CHOs at breakfast and that is why his blood glucose levels were so high. Discussed with that pt was only getting around 4 servings of CHOS at breakfast which is appropriate. Stated that pt needs to eat more frequently throughout the day to establish CHO consistency and control glucose levels. Briefly reviewed 1 CHO serving/exchange = 15g. Pt is on insulin at home, and is supposed to take 5 units at each meals but is very noncompliant; he never takes mealtime insulin but does inject 30units at night, per . She states that she encourages pt to use insulin and watch CHO but pt refuses. Also discussed with when at home to encourage pt to eat snacks throughout the day to ensure semi-adequate PO intake, decrease unintentional wt loss, and help control glucose levels slightly. Offered nutrition ed relating to DM and CKD. refused at the time. Will monitor labs and intake. Follow up every 5 days.
--- NOTE | 2019-10-12 13:47 | PM.IMPN ---
Progress Note: A&P Assessment and Plan (1) Community acquired pneumonia: Qualifiers: Laterality: unspecified laterality Qualified Code(s): J18.9 - Pneumonia, unspecified organism Code(s): J18.9 - Pneumonia, unspecified organism Status: Acute Assessment and Plan: He has been started on azithromycin and ceftriaxone.D # 4 Add Mucinex and Cornet to help mobilize secretions. Sputum to be attempted for culture. 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 Lasix between units of blood. Continue p.o. Lasix in a.m. Monitor volume status closely. (4) Acute worsening of stage 4 chronic kidney disease: Code(s): N18.4 - Chronic kidney disease, stage 4 (severe) Status: Acute Assessment and Plan: Probably due to hypoperfusion from anemia. He may be intravascular depleted due to 3rd spacing, however. 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 Initiate sliding scale insulin, Accu-Cheks, and hypoglycemic protocol. (6) Chronic GI bleeding: Code(s): K92.2 - Gastrointestinal hemorrhage, unspecified Status: Chronic Assessment and Plan: . 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 Continue PPI and serial monitoring Subjective Date/time seen: 10/12/19 13:47 Interval history: Date of visit 10/11 83-year-old white male with chronic renal failure stage 4 ,type 2 diabetes admitted with pneumonia and worsening anemia. Treated at the [facility] for his anemia is found to have gastritis GI bleeding. Also has anemia of chronic disease from his renal failure. Has refused hemodialysis. Coughing less and feeling somewhat better each day Exam Narrative: Exam Narrative: Blood pressure 150/84 pulse is 82 afebrile sat 88 General: A well-developed, well-nourished mildly ill-appearing elderly male sitting up in bed in no acute distress. He is quite hard of hearing. HEENT: Sclera anicteric. PERRL, . Neck: Supple. Large for the redundant skin hanging beneath the chin. Respiratory: still faint Crackles at the left base with scattered rhonchi. Cardiovascular: Regular rate and rhythm with S1-S2. Gastrointestinal: Abdomen is soft, nontender, and nondistended with positive bowel sounds. Skin: Warm and dry. Discoloration to the hands and forearms bilaterally, which he states is chronic and from iron. Extremities: No cyanosis or clubbing. He has 1+ pitting edema of the left upper extremity and bilateral lower extremities.but decreased Neurological: . No gross focal deficits to casual conversation. Psychiatric: Pleasant and cooperative with normal mood and affect. Objective Data Vital Signs Vital Signs: Vital Signs - 24 hr 10/11/19 14:00 10/11/19 15:25 10/11/19 15:26 Temperature 36.4 C Pulse Rate 66 63 Respiratory Rate 16 18 Blood Pressure 123/59 L Pulse Oximetry 97 95 10/11/19 15:33 10/11/19 17:39 10/11/19 20:44 Temperature Pulse Rate 66 66 67 Respiratory Rate 18 18 Blood Pressure Pulse Oximetry 91 10/11/19
--- NOTE | 2019-10-12 14:13 | PCNSR ---
On 10/12/19, the student, Brandi Mandel, provided care and completed [facility] documentation on this patient. I have reviewed the student's documentation and agree with the findings.
[2019-10-12 17:13] LABS: Pneumococcal Antigen Urine Not Detected (Not Detected)
[2019-10-12] MEDS: INSULIN ASPART (*BKC) 100 UNITS/ML SUB-Q (18:09)
[2019-10-12 18:13] LABS: Glucose Point of Care 242 (65-105)
[2019-10-12] MEDS: INSULIN GLARGINE (*BKC) 100 UNITS/ML 30 UNITS SUB-Q (21:03)
[2019-10-13 02:19] VITALS: PULSE 75; RESP 16
[2019-10-13] MEDS: IPRATROPIUM BR 0.02% INH SOLN 0.5 MG/2.5 ML VIAL INHALATION ×2 (02:19→08:57)
[2019-10-13] MEDS: ALBUTEROL SULFATE NEB 2.5 MG/0.5 ML INH 5 MG INHALATION ×2 (02:19→08:58)
[2019-10-13 02:24] VITALS: PULSE 70; RESP 16
[2019-10-13 02:54] LABS: Glucose Point of Care 201 (65-105)
[2019-10-13 05:44] LABS: Basophils Absolute Auto 0.1 K/mm3 (0.0-0.1); Basophils Percent Auto 0.6 % (0.2-1.2); Eosinophils Absolute Auto 0.3 K/mm3 (0-0.3); Eosinophils Percent Auto 3.4 % (0-4.4); Hematocrit 26.4 % (42.0-52.0); Immature Granulocyte Absolute 0.42 K/mm3 (0.00-0.031); Immature Granulocyte Percent A 4.2 % (0-0.5); Lymphocytes Absolute Auto 0.85 K/mm3 (0.9-3.2); Lymphocytes Percent Auto 8.6 % (18.3-44.2); Mean Corpuscular HGB Conc 30.3 g/dl (32-36); Mean Corpuscular Hemoglobin 25.5 pg (26-34); Mean Corpuscular Volume 84.1 fl (80-100); Mean Platelet Volume 10.2 fl (7.4-10.4); Monocytes Absolute Auto 0.7 K/mm3 (0.1-0.6); Monocytes Percent Auto 6.6 % (2.6-8.5); Neutrophils Absolute Auto 7.6 K/mm3 (1.3-6.7); Neutrophils Percent Auto 76.6 % (45.5-73.1); Platelet Count Result 284 k/mm3 (150-375); Red Blood Count 3.14 M/mm3 (4.6-6.20); Red Cell Distribution Width 16.4 % (11.5-14.5); White Blood Count 9.9 K/mm3 (4.5-10.0)
[2019-10-13 05:53] VITALS: BP 150/64; PULSE 76; RESP 16; TEMP 36.3; O2SAT 94
[2019-10-13 05:59] LABS: Blood Urea Nitrogen 64 mg/dL (9-20); Calcium 8.2 mg/dL (8.4-10.2); Carbon Dioxide 27 mmol/L (22-30); Chloride 105 mmol/L (98-107); Estimated CRCL calculation 28 ml/min; Estimated Glomerular Filt Rate 17; Glucose 75 mg/dL (75-110); Potassium 3.8 mmol/L (3.4-5.0); Sodium 137 mmol/L (137-145)
[2019-10-13 08:58] VITALS: PULSE 76; RESP 16; O2SAT 94
[2019-10-13 09:08] VITALS: PULSE 79; RESP 16
[2019-10-13] MEDS: PANTOPRAZOLE 40 MG TABLET PO (09:12)
[2019-10-13] MEDS: FUROSEMIDE 40 MG TABLET PO (09:12)
[2019-10-13] MEDS: SODIUM BICARBONATE TAB 650 MG TABLET 1300 MG PO ×2 (09:12→13:41)
[2019-10-13] MEDS: hydrALAZINE HCL 50 MG TABLET PO ×2 (09:12→13:41)
[2019-10-13] MEDS: CHOLECALCIFEROL 1,000 UNIT TABLET 2000 UNITS PO (09:13)
[2019-10-13] MEDS: BENZONATATE 100 MG CAPSULE 200 MG PO ×2 (09:13→13:41)
[2019-10-13] MEDS: ATORVASTATIN 40 MG TABLET 80 MG PO (09:13)
[2019-10-13] MEDS: FOLIC ACID 1 MG TABLET PO (09:13)
[2019-10-13] MEDS: calcitrioL 0.25 MCG CAPSULE PO (09:13)
[2019-10-13] MEDS: AMLODIPINE BESYLATE 5 MG TABLET 10 MG PO (09:13)
[2019-10-13] MEDS: FERROUS SULFATE 324 MG TABLET PO (09:13)
[2019-10-13 09:14] VITALS: PULSE 84
[2019-10-13] MEDS: MAGNESIUM OXIDE 400 MG TABLET PO (09:14)
[2019-10-13] MEDS: carvediloL 12.5 MG TABLET PO (09:14)
[2019-10-13 09:29] LABS: Glucose Point of Care 78 (65-105)
--- NOTE | 2019-10-13 09:57 | WPDGIPROGNO ---
Progress Note: A&P Additional Plan Patient alert and comfortable this morning. Only mildly short of breath. Physical exam reveals a few pulmonary rhonchi. Heart heart is without murmur. Abdominal exam is soft nontender with no organomegaly. Labs reveal hemoglobin 8 point no, hematocrit 26.4, MCV 84. Impression 1. GAVE. gastric antral vascular ectasias. These appear to account for GI blood loss. Chronic small amount of GI blood loss anticipated. Plan to keep patient on proton pump inhibitor. Also iron replacement. Monitoring hemoglobin is an outpatient is suggested as he may require occasional transfusion. Follow-up EGD at 3 or 4 months intervals anticipated initially. 2. Pneumonia. 3. Chronic kidney disease. 4. . Acute on chronic anemia. 5. Congestive heart failure. Subjective Date/time seen: 10/13/19 09:57 Objective Data Vital Signs Vital Signs: Vital Signs - 24 hr 10/12/19 14:00 10/12/19 15:50 10/12/19 15:58 Temperature 36.4 C L Pulse Rate 73 77 76 Respiratory Rate 17 16 16 Blood Pressure 147/53 H Pulse Oximetry 91 10/12/19 18:05 10/12/19 20:39 10/12/19 20:41 Temperature Pulse Rate 80 70 Respiratory Rate 16 Blood Pressure Pulse Oximetry 94 10/12/19 20:45 10/12/19 21:46 10/13/19 02:19 Temperature 36.9 C Pulse Rate 72 67 75 Respiratory Rate 16 16 16 Blood Pressure 153/60 H Pulse Oximetry 95 10/13/19 02:24 10/13/19 05:53 10/13/19 08:58 Temperature 36.3 C L Pulse Rate 70 76 76 Respiratory Rate 16 16 16 Blood Pressure 150/64 H Pulse Oximetry 94 94 10/13/19 09:14 Temperature Pulse Rate 84 Respiratory Rate Blood Pressure Pulse Oximetry Intake/Output Intake/Output: Intake & Output 10/10/19 10/11/19 10/12/19 10/13/19 23:59 23:59 23:59 23:59 Intake Total 1240 1790 1390 400 Output Total 900 1175 1325 1600 Balance 340 615 65 -1200 Meds/Results Medications: Active Medications Generic Name Dose Route Start Last Admin Trade Name Freq PRN Reason Stop Dose Admin Albuterol 5 mg 10/10/19 02:00 10/13/19 08:58 Albuterol Sulf Neb 2.5mg/0.5ml INHALATION 5 mg Q6HRT [facility] Administration Amlodipine Besylate 10 mg 10/10/19 09:00 10/13/19 09:13 Norvasc PO 10 mg DAILY [facility] Administration Atorvastatin Calcium 80 mg 10/10/19 09:00 10/13/19 09:13 Lipitor PO 80 mg DAILY [facility] Administration Benzonatate 200 mg 10/10/19 13:00 10/13/19 09:13 Tessalon Perles PO 200 mg TID [facility] Administration Calcitriol 0.25 mcg 10/10/19 09:00 10/13/19 09:13 Rocaltrol PO 0.25 mcg DAILY [facility] Administration Carvedilol 12.5 mg 10/09/19 23:00 10/13/19 09:14 Coreg PO 12.5 mg BID [facility] Administration Dextrose 12.5 gm 10/09/19 20:07 Dextrose 50% Syringe IV PUSH PRN PRN Hypoglycemia Protocol Ferrous Sulfate 324 mg 10/10/19 09:00 10/13/19 09:13 Ferrous Sulfate PO 324 mg DAILY [facility] Administration Folic Acid 1 mg 10/10/19 09:00 10/13/19 09:13 Folic Acid PO 1 mg DAILY [facility] Administration Furosemide 40 mg 10/10/19 09:00 10/13/19 09:12 Lasix Tablet PO 40 mg DAILY [facility] Administration Glucagon 1 mg 10/09/19 20:07 Glucagon For Inj IM PRN PRN Hypoglycemia Protocol Glucose 15 gm 10/09/19 20:07 Glutose 15 PO PRN PRN Hypoglycemia Protocol Guaifenesin 600 mg 10/09/19 21:00 10/13/19 09:12 Mucinex 12 Hr Tab PO 600 mg Q12HR [facility] Administration Guaifenesin/Dextromethorphan 10 ml 10/10/19 10:32 10/11/19 20:28 Robitussin-Dm Syrup PO 10 ml Q4H PRN Administration Cough Heparin Sodium (Beef Lung) 50 units 10/11/19 09:00 10/12/19 09:02 Heparin Flush 50 Units/5 Ml IV PUSH 50 units QAM [facility] Administration Heparin Sodium (Beef Lung) 50 units 10/10/19 10:55 10/13/19 05:00 Heparin Flush 50 Units/5 Ml IV PUSH 50 units PRN PRN Administration after intermittent infusion Heparin Sod
[2019-10-13 12:47] LABS: Glucose Point of Care 182 (65-105)
--- NOTE | 2019-10-13 13:22 | PCOTNOTE ---
Attempted to see patient for skilled OT, however, patient stated he is resting prior to being discharged. Therapist asked patient if he would like assistance with any ADLs or functional task or mobility, but patient declined. Patient not seen for OT.
[2019-10-13] MEDS: HEPARIN SOD FLUSH 500 UNITS/5 ML SYRINGE IV PUSH (13:41)
[2019-10-13 16:31] LABS: Legionella pneumophila Ag Ur Not Detected (Not Detected)
--- NOTE | 2019-10-13 17:22 | PM.DS ---
DS: Diagnosis Admitting Diagnosis Admitting Diagnosis: Pneumonia, unspecified organism Discharge Diagnosis (1) Community acquired pneumonia: Qualifiers: Laterality: unspecified laterality Qualified Code(s): J18.9 - Pneumonia, unspecified organism Code(s): J18.9 - Pneumonia, unspecified organism Status: Acute Assessment and Plan: completed 5 days of azithromycin and ceftriaxone. Sputum to be attempted for culture. 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 Continued p.o. Lasix in a.m. venous dopplers negative (4) Acute worsening of stage 4 chronic kidney disease: Code(s): N18.4 - Chronic kidney disease, stage 4 (severe) Status: Acute Assessment and Plan: Probably due to hypoperfusion from anemia. He may be intravascular depleted due to 3rd spacing, however. 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 and resumed his usual regime at home (6) Chronic GI bleeding: Code(s): K92.2 - Gastrointestinal hemorrhage, unspecified Status: Chronic Assessment and Plan: . 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 Continue PPI and serial monitoring DS: Summary Hospital Course Hospital Course: 83-year-old hypertensive type 2 diabetic chronic renal failure stage 4 admitted with increasing shortness of breath anemia edema and found to have pneumonia. Was treated with IV ceftriaxone and azithromycin transfused a unit of packed cells. Continue to improve with slowly falling creatinine while here down to 3.5 at the time of discharge. EGD revealed multiple telangiectasia multiple which were cauterized. Hemoglobin 8.0 2 days in a row before discharge [facility] Time Spent with Patient Time attestation: Total time spent providing and/or coordinating discharge services: 35 minutes Exam Narrative: Exam Narrative: Condition on discharge Blood pressure 150/64 pulse is 76 saturating 94% room air Lungs clear CV regular rate rhythm Abdomen benign obese Extremities without edema to trace Neuro alert pleasant cooperative Up with physical therapy take diet well and be discharged home [facility] for previously scheduled appointment DS: Data Data Completed and Pending Labs on day of discharge: Labs from last 24 hours 10/13/19 10/13/19 10/13/19 11:52 08:26 05:27 WBC RBC Hgb Hct MCV MCH MCHC RDW Plt Count MPV Immature Gran % (Auto) Neut % (Auto) Lymph % (Auto) [place] % (Auto) Eos % (Auto) Baso % (Auto) Lymph # (Auto) [place] # (Auto) Eos # (Auto) Baso # (Auto) Abs Immat Gran (auto) Absolute Neuts (auto) Absolute Nucleated RBC Nucleated RBC % Sodium 137 Potassium 3.8 Chloride 105 Carbon Dioxide 27 BUN 64 H Creatinine 3.50 H Estim Creat Clear Calc 28 Estimated GFR 17 L Glucose
== END 2019-10-13 14:20 | disposition home or self-care (01) | DRG 377 ==
LOC: ANHED 13:02 → ANHIMU 14:47 → ANH2MED 10-10 23:25 → ANHIMU 10-17 15:21
PROVIDERS: Internal Medicine Gastroenterology; Internal Medicine Nephrology; Physician Assistant; Admitting Provider Internal Medicine; Emergency Provider Emergency Medicine; Visit Provider Internal Medicine
PROC: 0DJ08ZZ Inspection of Upper Intestinal Tract, Via Natural or Artificial Opening Endoscopic (ICD-10-PCS; CPT 43235; principal; 2019-10-11 10:30)
DX: K31.811 Angiodysplasia of stomach and duodenum with bleeding (principal); J18.9 Pneumonia, unspecified organism; I50.33 Acute on chronic diastolic (congestive) heart failure; I13.0 Hypertensive heart and chronic kidney disease with heart failure and stage 1 through stage 4 chronic kidney disease, or unspecified chronic kidney disease; N18.4 Chronic kidney disease, stage 4 (severe); D62 Acute posthemorrhagic anemia; D63.1 Anemia in chronic kidney disease; E11.22 Type 2 diabetes mellitus with diabetic chronic kidney disease; D63.8 Anemia in other chronic diseases classified elsewhere; H40.9 Unspecified glaucoma; I27.20 Pulmonary hypertension, unspecified; Z79.4 Long term (current) use of insulin; Z98.42 Cataract extraction status, left eye; Z98.41 Cataract extraction status, right eye; Z90.49 Acquired absence of other specified parts of digestive tract; Z87.891 Personal history of nicotine dependence; Z85.038 Personal history of other malignant neoplasm of large intestine; Z85.05 Personal history of malignant neoplasm of liver
CPT/HCPCS: 36415; 36430; 71046; 80048; 80053; 80069; 82274; 82306; 82728; 83540; 83550; 83605; 83735; 83970; 84100; 84443; 85025; 85027; 85046; 86850; 86900; 86901; 86920; 87040; 87070; 87205; 87449; 87804; 87899; 93005; 93970; 93971; 94640; 94667; 94668; 96365; 96367; 97110; 97116; 97161; 97165; 97530; 97535; 99285; A9270; J0456; J0696; J1642; J1815; J2704; J7050; J7120; P9016